=== PATIENT | female | born 1975 | race Caucasian/White ===

== ENCOUNTER 2020-04-05 16:00 | Outpatient (REF) | payer OTHER, SELFPAY | END 2020-04-05 16:01 | disposition home or self-care (01) | LOC: HO.LNP 16:00 | PROVIDERS: Visit Provider Internal Medicine | DX: Z20.828 Contact with and (suspected) exposure to other viral communicable diseases (principal) | CPT/HCPCS: U0003 ==

== ENCOUNTER 2020-05-09 16:20 | Outpatient (REF) | payer OTHER, SELFPAY ==
[2020-05-09 17:11] LABS: Influenza A PCR NEGATIVE (Negative); Influenza B PCR NEGATIVE (Negative); Resp Syncy Virus RNA Qual PCR NEGATIVE (Negative); SARS COV2 PCR INHOUSE POSITIVE (Negative)
== END 2020-05-09 16:21 | disposition home or self-care (01) ==
LOC: HO.LNP 16:20
PROVIDERS: Visit Provider Internal Medicine
DX: Z20.822 Contact with and (suspected) exposure to COVID-19 (principal)
CPT/HCPCS: 0241U

== ENCOUNTER 2020-05-16 12:09 | Emergency (ER) | payer OTHER, SELFPAY ==
[2020-05-16 12:24] VITALS: BP 137/82; PULSE 100; RESP 22; TEMP 36.3; O2SAT 100; BMI 28.6
--- NOTE | 2020-05-16 12:56 | XR_ITS ---
EXAMINATION: XR CHEST CLINICAL INFORMATION: Shortness of breath. COMPARISON: Chest radiograph dated 05/02/2015. TECHNIQUE: Frontal view of the chest was obtained. FINDINGS: No airspace consolidation. No pleural effusion or pneumothorax. Stable cardiomediastinal silhouette. Surgical anchors within the right glenoid. XR/XR chest 1V IMPRESSION: Unremarkable examination.
--- NOTE | 2020-05-16 12:57 | ECG_ITS ---
Test Reason : [id number] Blood Pressure : / mmHG Vent. Rate : 097 BPM Atrial Rate : 097 BPM P-R Int : 140 ms QRS Dur : 076 ms QT Int : 358 ms P-R-T Axes : 046 047 -10 degrees QTc Int : 454 ms Normal sinus rhythm Nonspecific T wave abnormality Abnormal ECG When compared with ECG of 30-APR-2014 11:54, T wave inversion now evident in Inferior leads Nonspecific T wave abnormality now evident in Lateral leads Referred By: Kaitlynn Patel Electronically Signed By:LARS GHOTRA MD
--- NOTE | 2020-05-16 12:58 | ED.SOB ---
HPI - SOB/Dyspnea General Chief Complaint: Dyspnea Stated Complaint: difficulty breathing Time Seen by Provider: 05/16/20 12:56 Source: patient Mode of arrival: ambulatory Limitations: no limitations History of Present Illness HPI Narrative: 44 y/o female with history of remote stage IV Hodgekin's lymphoma, obesity, migraines who was recently diagnosed COVID-19 infection presenting with worsening SOB that started today. She has difficulty breathing with minor exertion. She reports chest tightness and trouble catching her breath. Pain is worse when taking deep breaths or coughing. She reports myalgias and headaches as well. She began with symptoms 8 days ago and was found to be COVID positive 6 days ago. MD elicited complaint: shortness of breath Onset (ago): hour(s) (6) Context: recent illness Timing: constant and progressively worsening Severity: moderate Exacerbating factors: exertion, coughing and inspiration Relieving factors: rest and upright position Associated symptoms: chest pain, pain with inspiration and cough Treatment prior to arrival: none Related Data Allergies Allergy/AdvReac Type Severity Reaction Status Date / Time codeine [CODEINE] Allergy Unknown VOMIT Unverified 01/20/20 15:56 AND/OR SLEEP Codeine Phosphate Allergy Unknown Uncoded 08/07/16 00:00 Codeine Sulfate Allergy Unknown nausea and Uncoded 01/26/19 00:00 vomiting Review of Systems Review of Systems: Constitutional: No Fever, + Chills ENT/Mouth: + sore throat, No Rhinorrhea, No Swallowing Difficulty Eyes: No Eye Pain, No Swelling, No Redness Cardiovascular: + Chest Pain, + SOB, No Orthopnea, No Edema Respiratory:+o Cough, No Sputum, No Wheezing, + dyspnea Gastrointestinal: No Nausea, No Vomiting, No Diarrhea, No abdominal Pain Genitourinary: No Dysuria, No Urinary Frequency, No Hematuria Musculoskeletal: No joint pain, + Myalgias Skin: No Skin Lesions, No rash Neuro: No Weakness, No Numbness, No Dizziness, + Headache Psych: No Anxiety/Panic, No Depression Heme/Lymph: No Bruising, No Lymphadenopathy Endocrine: No Polyuria, No Polydipsia PMFSH Social History Social History Advance Directives: No Advance Directives Information Provided: No Physical Exam Vital Signs: Vital Signs: Last Vital Signs Temp 97.3 F 05/16/20 14:00 Pulse 92 05/16/20 14:00 Resp 18 05/16/20 14:00 BP 142/88 H 05/16/20 14:00 Pulse Ox 100 05/16/20 14:00 Body Mass Index 28.6 Appearance: Alert. Oriented X3. No acute distress. Eyes: Pupils equal, round and reactive to light. ENT: Pharynx normal. Neck: Normal inspection. Neck supple. CVS: Normal heart rate and rhythm. Pulses normal. Respiratory: No respiratory distress. Breath sounds diminished throughout. Dyspneic when speaking. Abdomen: Soft and nontender. +BS x4 Skin: Skin warm and dry. Normal skin color. Normal skin turgor. No rashes. Extremities: No lower extremity edema. Negative Layla's sign. Neuro: Oriented X 3. Non-focal Course Course Course Narrative: 44 yo female with history of Hodgkin's lymphoma and COVID here with SOB and dyspnea - No hypoxia but dyspneic and tachycardic on evaluation. Concern for PE. Labs pending. If ddimer is elevated plan of CTA for further evaluation. Will need ambulatory pulse oximetry. Lab delay due to difficult stick. multiple attempts made with success at 430pm. Signed out to Vernon Suarez PA-C MDM - SOB/Dyspnea Medical Records Attestation: I reviewed the patient's medical records. Lab Data Attestation: I reviewed the patient's lab results. Result diagrams: 05/16/20 16:33 05/16/20 16:33 Labs: Lab Results 05/16/20 Range/Units 16:33 Hold Blue Top SEE NOTE ECG Data Attestation: I personally reviewed and interpreted this ECG as follows: ECG interpretation date: 05/16/20 ECG interpretation time: 14:06 Interpretation: normal sinus rhythm, HR 97 bpm, isolated t-wave inversion in lead III, normal MA interval Discharge Plan Discharge Clinical Impression: COVID-19
[2020-05-16 14:00] VITALS: BP 142/88; PULSE 92; RESP 18; TEMP 36.3; O2SAT 100
[2020-05-16 16:42] LABS: MANUAL DIFF FLAG NO
[2020-05-16 16:44] LABS: Basophils Percent Auto 0.2 % (0-2); Eosinophils Percent Auto 0.7 % (0-4); Hematocrit 41.7 % (37-47); Hemoglobin 13.7 g/dl (12.0-16.0); Imm Gran Abs Auto 0.03 X10*3/uL (0.00-0.03); Imm Gran Pct Auto 0.5 % (0.0-0.4); Lymphocytes Absolute Auto 0.7 X10*3/uL (1.2-4.9); Lymphocytes Percent Auto 12.4 % (20-40); Mean Corpuscular HGB Conc 32.9 g/dl (31.0-35.0); Mean Corpuscular Volume 91.2 fL (80-98); Mean Platelet Volume 10.1 fL (9.4-12.3); Monocytes Absolute Auto 0.3 X10*3/uL (0.1-1.2); Monocytes Percent Auto 5.6 % (2-11); Neutrophils Absolute Auto 4.8 X10*3/uL (2.0-8.3); Neutrophils Percent Auto 80.6 % (45-73); Platelet Count 171 X10*3/uL (160-400); Red Blood Count 4.57 X10*6/uL (4.20-5.50); Red Cell Distribution Width 13.4 % (11.0-16.0); White Blood Count 5.9 X10*3/uL (4.8-10.8)
[2020-05-16 17:04] LABS: D Dimer < 200 NG/ML
[2020-05-16 17:29] LABS: Anion Gap 15 (12-20); Blood Urea Nitrogen 12 mg/dL (9-16); C Reactive Protein 1.89 mg/dL (< or = 0.50); Calcium 9.2 mg/dL (8.4-10.2); Carbon Dioxide 27 mmol/L (22-29); Chloride 105 mmol/L (96-108); Creatinine Clr Calc Pharmacy 110.4; Estimated Glomerular Filt Rate > 60; Glucose Random 93 mg/dL (60-115); Magnesium 2.2 mg/dL (1.6-2.6); Potassium 4.2 mmol/l (3.3-5.1); Sodium 143 mmol/L (135-145)
[2020-05-16 17:41] LABS: Lactic Acid 2.3 mmol/L (0.5-2.0)
[2020-05-16 18:03] LABS: Procalcitonin 0.02 ng/mL
[2020-05-16 18:39] LABS: Reflex Lactate? Lactic Acid Added
== END 2020-05-16 19:33 | disposition home or self-care (01) ==
PROVIDERS: Physician Assistant; Emergency Provider Emergency Medicine Emergency Medical Services
DX: U07.1 COVID-19 (principal); R06.00 Dyspnea, unspecified
CPT/HCPCS: 36415; 71045; 80048; 83605; 83735; 84145; 85025; 85379; 86140; 87040; 93005; 99283

== ENCOUNTER 2020-06-13 06:49 | Outpatient (REF) | payer OTHER, SELFPAY ==
[2020-06-13 11:15] LABS: MANUAL DIFF FLAG NO
[2020-06-13 11:27] LABS: Basophils Percent Auto 0.4 % (0-2); Eosinophils Absolute Auto 0.2 X10*3/uL (0.0-0.4); Eosinophils Percent Auto 3.2 % (0-4); Hematocrit 37.8 % (37-47); Hemoglobin 11.9 g/dl (12.0-16.0); Imm Gran Abs Auto 0.02 X10*3/uL (0.00-0.03); Imm Gran Pct Auto 0.4 % (0.0-0.4); Lymphocytes Percent Auto 20.6 % (20-40); Mean Corpuscular HGB Conc 31.5 g/dl (31.0-35.0); Mean Corpuscular Hemoglobin 29.6 pg (27.0-33.0); Mean Platelet Volume 10.6 fL (9.4-12.3); Monocytes Absolute Auto 0.3 X10*3/uL (0.1-1.2); Monocytes Percent Auto 6.5 % (2-11); Neutrophils Absolute Auto 3.4 X10*3/uL (2.0-8.3); Neutrophils Percent Auto 68.9 % (45-73); Platelet Count 196 X10*3/uL (160-400); Red Blood Count 4.02 X10*6/uL (4.20-5.50); Red Cell Distribution Width 14.8 % (11.0-16.0); White Blood Count 4.9 X10*3/uL (4.8-10.8)
[2020-06-13 11:55] LABS: Alanine Aminotransferase 11 U/L (0-31); Albumin Level 4.1 g/dL (3.5-5.0); Alkaline Phosphatase 85 U/L (39-117); Anion Gap 14 (12-20); Aspartate Amino Transferase 17 U/L (5-31); Bilirubin Total 0.3 mg/dL (0.0-1.0); Blood Urea Nitrogen 12 mg/dL (9-16); Calcium 8.7 mg/dL (8.4-10.2); Carbon Dioxide 25 mmol/L (22-29); Chloride 107 mmol/L (96-108); Cholesterol 192 mg/dL; Estimated Glomerular Filt Rate > 60; Glucose Fasting 86 mg/dL (60-99); HDL Cholesterol 47 mg/dL; LDL Cholesterol Calculated 130 mg/dl; Potassium 4.2 mmol/L (3.3-5.1); Sodium 142 mmol/L (135-145); Total Protein 6.9 g/dL (6.5-8.0); Triglycerides 79 mg/dL
[2020-06-13 12:18] LABS: Free T4 (Free Thyroxine) 0.83 ng/dL (0.71-1.85); Thyroid Stimulating Hormone 2.88 uIU/mL (0.32-4.0); Vitamin D 25-OH Total 47.6 ng/mL (>30)
== END 2020-06-13 06:50 | disposition home or self-care (01) ==
LOC: HO.HMGCLDS 06:49
PROVIDERS: PCP Internal Medicine; Visit Provider Internal Medicine
DX: E78.00 Pure hypercholesterolemia, unspecified (principal); E55.9 Vitamin D deficiency, unspecified; K21.9 Gastro-esophageal reflux disease without esophagitis; Z86.39 Personal history of other endocrine, nutritional and metabolic disease
CPT/HCPCS: 36415; 80053; 80061; 82306; 84439; 84443; 85025

== ENCOUNTER 2020-10-25 12:45 | Outpatient (REF) | payer OTHER, SELFPAY | END 2020-10-25 12:46 | disposition home or self-care (01) | LOC: HO.LAB 12:45 | PROVIDERS: PCP Internal Medicine; Visit Provider Advanced Practice Midwife | DX: N84.1 Polyp of cervix uteri (principal) | CPT/HCPCS: 58558; 88305 ==

== ENCOUNTER → 2020-11-21 11:45 | Outpatient (BNVA) | payer OTHER, SELFPAY | PROVIDERS: PCP Internal Medicine; Visit Provider Advanced Practice Midwife ==

== ENCOUNTER → 2020-11-28 13:04 | Outpatient (BNVA) | payer OTHER, SELFPAY | PROVIDERS: PCP Internal Medicine; Referring Provider Internal Medicine; Visit Provider Surgery ==

== ENCOUNTER 2020-12-19 07:34 | Outpatient (REF) | payer OTHER, SELFPAY ==
[2020-12-19 07:46] VITALS: BMI 28.8
[2020-12-19 07:47] VITALS: BP 120/75; PULSE 104; RESP 16; TEMP 36.5; O2SAT 99
--- NOTE | 2020-12-19 08:30 | P.OP_ITS ---
Operative Note Operative Note Date of Service: 12/19/20 Narrative: Preoperative diagnosis: Pilar cyst left posterior scalp Postoperative diagnosis: Same Procedure: Excision of Pilar cyst left posterior scalp Surgeon: Francisco Lord MD Commodity Supervisor: No physician Anesthesia: Local Indications for procedure: 45-year-old female with a palpable lump in the posterior scalp mobile within the subcutaneous tissue consistent with a Pilar cyst measuring approximately 1.5 cm in diameter Operative findings: Pilar cyst 1.5 cm in diameter Specimen: Pilar cyst posterior left scalp Estimated blood loss: 2 mL Complications: None Procedure details: Patient was brought to the minor surgery suite placed in a right lateral decubitus position. The site of surgery was confirmed by the patient in the left posterior scalp. After assuring informed consent the scalp was prepped with Betadine and draped in a sterile fashion. Local anesthesia consisting of 1% lidocaine with epinephrine was then infiltrated over the cyst. A 1.5 cm incision was then made over the cyst and carried down through subcutaneous tissue up to the cyst wall. Blunt dissection was then used to dissect the cyst from the surrounding subcutaneous tissue. The specimen was passed off the table and sent to pathology for further examination. Skin was then closed using interrupted 3-0 Prolene sutures. Bacitracin was applied to the incision. The patient tolerated the procedure well. She was discharged to home in stable condition.
--- NOTE | 2020-12-22 16:40 | W.PM.OPN ---
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 The site of surgery was confirmed by the patient in the posterior scalp. After assuring informed consent the skin was prepped with Betadine and draped in a sterile fashion. Local anesthesia consisting of 1% lidocaine with epinephrine was then infiltrated over the cyst. Incision was then made over the cyst and sharp dissection used to dissect the cyst wall from the surrounding subcutaneous tissue. The wall was excised and sent to pathology for further examination. Wounds were irrigated and suctioned dry. Skin was then closed using interrupted 3-0 Prolene sutures. Bacitracin was applied. The patient tolerated the procedure well was discharged to home in stable condition.
== END 2020-12-19 07:35 | disposition home or self-care (01) ==
LOC: HO.MS 07:34
PROVIDERS: PCP Internal Medicine; Visit Provider Surgery
PROC: (CPT 11422; principal; 2020-12-19 08:00)
DX: L72.11 Pilar cyst (principal)
CPT/HCPCS: 11422; 88304

== ENCOUNTER → 2020-12-29 08:46 | Outpatient (BNVA) | payer OTHER, SELFPAY | PROVIDERS: PCP Internal Medicine; Referring Provider Internal Medicine; Visit Provider Surgery ==

== ENCOUNTER 2021-01-09 14:48 | Outpatient (REF) | payer OTHER, SELFPAY ==
--- NOTE | ~2021-01-09 | MM_ITS ---
EXAMINATION: MM DIAGNOSTIC DIGITAL BREAST TOMOSYNTHESIS, BILATERAL CLINICAL INFORMATION: Due for yearly. Also, follow-up probable benign asymmetric density anterior medial left breast initially noted at baseline exam in 2019. Prior history thoracic radiation for Hodgkin's decades ago. TC score 13%. COMPARISON: Mammography: 01/03/2020, 06/22/2019, 12/15/2018, 12/03/2018 (baseline, BI-RADS 0), targeted left breast ultrasound 12/15/2018. TECHNIQUE: Digital breast tomosynthesis is performed in both the craniocaudal and mediolateral oblique views along with computer-aided detection (CAD). Synthesized 2D images are generated from the tomosynthesis. FINDINGS: There are scattered areas of fibroglandular density (ACR BI-RADS breast composition Category b). Parenchymal pattern is similar to prior exams. There is no developing density. There is no interval mass or architectural abnormality or abnormal calcifications. The axilla and skin contours are unremarkable. The asymmetric density anterior medial left breast on CC view is stable from prior studies, dating back to initial baseline 12/03/2018, and now considered to be benign. Results are discussed with the patient at time of visit. MM/MM tomosynthesis diagnostic BI IMPRESSION: 1. No mammographic evidence of malignancy. 2. No significant changes from prior exams. Asymmetric density anterior medial left breast initially noted at baseline exam is now considered to be benign. ASSESSMENT: BI-RADS 2: Benign RECOMMENDATION: Routine annual mammography screening. This patient's information was entered into a reminder system with a target due date for their next mammogram.
== END 2021-01-09 14:49 | disposition home or self-care (01) ==
LOC: HO.MAMMO 14:48
PROVIDERS: PCP Internal Medicine; Visit Provider Internal Medicine
DX: R92.2 Inconclusive mammogram (principal)
CPT/HCPCS: 77062; 77066

== ENCOUNTER 2021-12-26 14:18 | Outpatient (REF) | payer OTHER, SELFPAY ==
[2021-12-26 17:08] LABS: Influenza A PCR NEGATIVE (Negative); Influenza B PCR NEGATIVE (Negative); Resp Syncy Virus RNA Qual PCR NEGATIVE (Negative); SARS COV2 PCR INHOUSE NEGATIVE (Negative)
== END 2021-12-26 14:19 | disposition home or self-care (01) ==
LOC: HO.LNP 14:18
PROVIDERS: Visit Provider Internal Medicine
DX: R11.2 Nausea with vomiting, unspecified (principal); R19.7 Diarrhea, unspecified; Z20.822 Contact with and (suspected) exposure to COVID-19
CPT/HCPCS: 0241U

== ENCOUNTER 2022-02-22 10:36 | Outpatient (REF) | payer OTHER, SELFPAY ==
[2022-02-22 13:37] LABS: MANUAL DIFF FLAG NO
[2022-02-22 13:40] LABS: Basophils Percent Auto 0.5 % (0-2); Eosinophils Absolute Auto 0.1 X10*3/uL (0.0-0.4); Eosinophils Percent Auto 2.3 % (0-4); Hemoglobin 12.6 g/dl (12.0-16.0); Imm Gran Abs Auto 0.01 X10*3/uL (0.00-0.03); Imm Gran Pct Auto 0.2 % (0.0-0.4); Lymphocytes Absolute Auto 1.7 X10*3/uL (1.2-4.9); Mean Corpuscular HGB Conc 32.3 g/dl (31.0-35.0); Mean Corpuscular Hemoglobin 29.1 pg (27.0-33.0); Mean Corpuscular Volume 90.1 fL (80.0-98.0); Mean Platelet Volume 10.4 fL (9.4-12.3); Monocytes Absolute Auto 0.4 X10*3/uL (0.1-1.2); Monocytes Percent Auto 7.6 % (2-11); Neutrophils Absolute Auto 3.3 x10*3/uL (2.0-8.3); Neutrophils Percent Auto 59.4 % (45-73); Platelet Count 233 X10*3/uL (160-400); Red Blood Count 4.33 X10*6/uL (4.20-5.50); Red Cell Distribution Width 14.2 % (11.0-16.0); White Blood Count 5.6 X10*3/uL (4.8-10.8)
[2022-02-22 13:53] LABS: Alanine Aminotransferase 13 U/L (0-31); Albumin Level 4.5 g/dL (3.5-5.0); Alkaline Phosphatase 90 U/L (39-117); Amylase 53 U/L (28-100); Anion Gap 17 (12-20); Aspartate Amino Transferase 20 U/L (5-31); Bilirubin Total 0.5 mg/dL (0.0-1.0); Blood Urea Nitrogen 12 mg/dL (9-16); C Reactive Protein 0.45 mg/dL (< or = 0.50); Calcium 9.8 mg/dL (8.4-10.2); Carbon Dioxide 26 mmol/L (22-29); Chloride 103 mmol/L (96-108); Estimated Glomerular Filt Rate > 60; Glucose Random 77 mg/dL (60-115); Potassium 4.6 mmol/L (3.3-5.1); Sodium 141 mmol/L (135-145); Total Protein 7.3 g/dL (6.5-8.0)
== END 2022-02-22 10:37 | disposition home or self-care (01) ==
LOC: HO.10HDL 10:36
PROVIDERS: Visit Provider Internal Medicine
DX: K21.9 Gastro-esophageal reflux disease without esophagitis (principal); R59.9 Enlarged lymph nodes, unspecified
CPT/HCPCS: 36415; 80053; 82150; 85025; 86140

== ENCOUNTER 2023-08-23 07:26 | Outpatient (REF) | payer OTHER, SELFPAY ==
[2023-08-23 11:57] LABS: MANUAL DIFF FLAG NO
[2023-08-23 11:59] LABS: Basophils Percent Auto 0.5 % (0-2); Eosinophils Absolute Auto 0.6 X10*3/uL (0.0-0.4); Eosinophils Percent Auto 10.8 % (0-4); Hemoglobin 13.1 g/dl (12.0-16.0); Imm Gran Abs Auto 0.02 X10*3/uL (0.00-0.03); Imm Gran Pct Auto 0.3 % (0.0-0.4); Lymphocytes Absolute Auto 1.4 X10*3/uL (1.2-4.9); Lymphocytes Percent Auto 24.9 % (20-40); Mean Corpuscular HGB Conc 32.8 g/dl (31.0-35.0); Mean Corpuscular Hemoglobin 30.6 pg (27.0-33.0); Mean Corpuscular Volume 93.5 fL (80.0-98.0); Mean Platelet Volume 10.5 fL (9.4-12.3); Monocytes Absolute Auto 0.4 X10*3/uL (0.1-1.2); Monocytes Percent Auto 6.4 % (2-11); Neutrophils Absolute Auto 3.3 x10*3/uL (2.0-8.3); Neutrophils Percent Auto 57.1 % (45-73); Platelet Count 211 X10*3/uL (160-400); Red Blood Count 4.28 X10*6/uL (4.20-5.50); Red Cell Distribution Width 14.5 % (11.0-16.0); White Blood Count 5.8 X10*3/uL (4.8-10.8)
[2023-08-23 12:16] LABS: Alanine Aminotransferase 22 U/L (0-31); Albumin Level 4.2 g/dL (3.5-5.0); Alkaline Phosphatase 70 U/L (39-117); Anion Gap 10 (12-20); Aspartate Amino Transferase 24 U/L (5-31); Bilirubin Total 0.4 mg/dL (0.0-1.0); Blood Urea Nitrogen 17 mg/dL (9-16); Calcium 9.2 mg/dL (8.4-10.2); Carbon Dioxide 27 mmol/L (22-29); Chloride 109 mmol/L (96-108); Cholesterol 195 mg/dL (<200); Estimated Glomerular Filt Rate > 60; Glucose Fasting 84 mg/dL (60-99); HDL Cholesterol 44 mg/dL (>40); LDL Cholesterol Calculated 141 mg/dL (<100); Potassium 4.3 mmol/L (3.3-5.1); Sodium 142 mmol/L (135-145); Total Protein 7.2 g/dL (6.5-8.0); Triglycerides 54 mg/dL (<150)
== END 2023-08-23 07:27 | disposition home or self-care (01) ==
LOC: HO.HMGCLDS 07:26
PROVIDERS: PCP Internal Medicine; Visit Provider Internal Medicine
DX: K21.9 Gastro-esophageal reflux disease without esophagitis (principal); E78.00 Pure hypercholesterolemia, unspecified
CPT/HCPCS: 36415; 80053; 80061; 85025

== ENCOUNTER 2023-10-13 16:33 | Outpatient (REF) | payer OTHER, SELFPAY ==
--- NOTE | ~2023-10-13 | XR_ITS ---
EXAMINATION: XR HAND, BILATERAL CLINICAL INFORMATION: Evaluate osteoarthritis. COMPARISON: None available. TECHNIQUE: 3 views of each hand. FINDINGS: Right Hand: Bone mineralization is normal. Moderate degenerative changes in the first carpometacarpal joint with joint space narrowing and hypertrophic change. Degenerative changes in multiple IP joints with joint space narrowing and hypertrophic change most notable in the DIP joints as well as in the fifth IP joint. Small ossicle along the dorsal aspect of the wrist on the lateral view. Left Hand: Bone mineralization is normal. Moderate degenerative changes in the first carpometacarpal joint with joint space narrowing and hypertrophic change. Degenerative changes at multiple IP joints with joint space and hypertrophic change which appears severe in the second digit DIP joint. XR/XR hand RT min 3V IMPRESSION: 1. Moderate degenerative changes in the bilateral first carpometacarpal joints. 2. Degenerative changes in multiple IP joints bilaterally.
--- NOTE | ~2023-10-13 | XR_ITS ---
EXAMINATION: XR HAND, BILATERAL CLINICAL INFORMATION: Evaluate osteoarthritis. COMPARISON: None available. TECHNIQUE: 3 views of each hand. FINDINGS: Right Hand: Bone mineralization is normal. Moderate degenerative changes in the first carpometacarpal joint with joint space narrowing and hypertrophic change. Degenerative changes in multiple IP joints with joint space narrowing and hypertrophic change most notable in the DIP joints as well as in the fifth IP joint. Small ossicle along the dorsal aspect of the wrist on the lateral view. Left Hand: Bone mineralization is normal. Moderate degenerative changes in the first carpometacarpal joint with joint space narrowing and hypertrophic change. Degenerative changes at multiple IP joints with joint space and hypertrophic change which appears severe in the second digit DIP joint. XR/XR hand LT min 3V IMPRESSION: 1. Moderate degenerative changes in the bilateral first carpometacarpal joints. 2. Degenerative changes in multiple IP joints bilaterally.
== END 2023-10-13 16:34 | disposition home or self-care (01) ==
LOC: HO.XRAY 16:33
PROVIDERS: PCP Internal Medicine; Visit Provider Internal Medicine
DX: M19.041 Primary osteoarthritis, right hand (principal); M19.042 Primary osteoarthritis, left hand
CPT/HCPCS: 73130

== ENCOUNTER 2023-10-21 08:23 | Outpatient (REF) | payer OTHER, SELFPAY ==
--- NOTE | 2023-10-21 08:32 | EMG_ITS ---
Right median and ulnar motor and sensory studies were performed. Right radial sensory and median and lateral antecubital brachial sensory studies were performed. Needle examination was performed. IMPRESSION: Mild right ulnar neuropathy across cubital tunnel. MD SCARLETT Hernandez/HERNAN / [id number]
== END 2023-10-21 08:24 | disposition home or self-care (01) ==
LOC: HO.NEURO 08:23
PROVIDERS: PCP Internal Medicine; Visit Provider Internal Medicine
DX: R20.2 Paresthesia of skin (principal)
CPT/HCPCS: 95886; 95910

== ENCOUNTER 2023-11-19 08:00 | Outpatient (AMB) | payer BC, SELFPAY ==
--- NOTE | 2023-11-19 08:15 | MHC.OFFVIS ---
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 EMG done on 10/21/23. Patient reports off and on for a couple of years. She states that she also has arthritis in both of her hands. 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 ? ? While in the office today, the patient reports the numbness has been intermittent for a couple of years. ? ? Patient confirms a medical history of bilateral hand arthritis. ? PFSH Medical History Depression Hodgkin lymphoma Hx of migraine headaches Surgical History H/O elbow surgery H/O shoulder surgery History of biopsy History of hernia surgery Family History Family/Other Breast cancer Mother Melanoma Father Lung cancer Paternal Uncle Lung cancer Paternal Aunt Lung cancer Social History (Updated 11/19/23 @ 08:16 by Lance Riley) Alcohol intake: former Patient Tobacco Use Status: Never used Tobacco Current occupational status: employed Current occupation: [employer]/ left hand dominant Review of Systems Const All systems reviewed & are unremarkable except as noted in HPI and below Physical Exam Vital Signs: BMI result Body Mass Index 25.5 Const General: cooperative and no acute distress Orientation/consciousness: patient oriented x3 Resp Effort & Inspection: normal respiratory effort and able to speak in complete sentences Cardio Peripheral pulses: Peripheral pulses 2+ throughout Skin General skin exam: no rashes or lesions noted Neuro General: patient oriented x3 Extrem Other: Bilateral hands: Index ingers DIP joints have mild edema and obvious deformity. Able to perform full finger flexion, extension, abduction, adduction, finger cross, okay sign, and thumbs up without deficit. Able to make a closed fist. Reports that she has intermittent numbness and tingling in the index and middle figers on the right. Capillary refill is brisk. Radial pulse intact.? ? Assessment & Plan Assessment & Plan (1) Rheumatoid arthritis of right hand: Code(s): M06.9 - Rheumatoid arthritis, unspecified Category: Medical (2) Rheumatoid arthritis involving left hand: Code(s): M06.9 - Rheumatoid arthritis, unspecified Category: Medical (3) Cubital tunnel syndrome on right: Code(s): G56.21 - Lesion of ulnar nerve, right upper limb Category: Medical Plan Ms. Tate is a 48-year-old left hand dominant female who presents in the office today, as a new patient, for an evaluation of right-hand numbness. ? ? While in the office today, the patient reports the numbness has been intermittent for a couple of years. ? ? Patient confirms a medical history of bilateral hand arthritis.? ? I discussed with the patient that her cubital tunnel symptoms are very mild and very intermittent, therefore, the patient would not like to pursue surgical intervention, at this time. However, should her symptoms become worse or more frequent she will contact the office. A referral was placed for the patient to be further evaluated by Rheumatology. Follow-up will be PRN, or sooner if needed. ? ? EMG study of the right upper extremity, obtained on 10/21/2023, revealed: Mild right ulnar neuropathy across cubital tunnel.? ? X-rays of the bilateral hands, obtained on 10/27/2023, revealed:? 1. Moderate degenerative changes in the bilateral first carpometacarpal joints.? 2. Degenerative changes in multiple IP joints bilaterally.? Patient Instructions: Scribed by Kaitlynn Álvarez medical customer service representative, for Ursula Aguilar PA-C on 11/19/2023 at 8:10 am, EST.? Coding Level of Care Code New Pt Level 3 (52760) Diagnoses Rheumatoid arthritis of right hand M06.9 Rheumatoid arthritis involving left hand M06.9 Cubital tunnel syndrome on right G56.21
[2023-11-19 08:16] VITALS: BMI 25.5
== END 2023-11-19 08:46 | disposition home or self-care (01) ==
PROVIDERS: PCP Internal Medicine; Visit Provider Physician Assistant
DX: G56.21 Lesion of ulnar nerve, right upper limb (principal); M06.9 Rheumatoid arthritis, unspecified
CPT/HCPCS: 99203

== ENCOUNTER → 2023-11-19 08:00 | Outpatient (BNVA) | payer OTHER, SELFPAY | PROVIDERS: PCP Internal Medicine; Visit Provider Physician Assistant ==

== ENCOUNTER 2023-12-03 08:26 | Outpatient (AMB) | payer BC, SELFPAY ==
[2023-12-03 08:34] VITALS: BP 126/70; PULSE 75; O2SAT 97; BMI 26.9
--- NOTE | 2023-12-03 08:34 | MHC.OFFVIS ---
Vital Signs 12/03/23 08:34 Height 5 ft 7 in Weight 171 lb 15.369 oz BMI 26.9 BP 126/70 Blood Pressure Location Lt brachial Position Sitting Pulse 75 Pulse Source Pulse Oximeter Pulse Oximetry (%) 97 Oxygen Delivery Method Room Air Intake Visit Reasons: RA/CM Intake Note: Patient is here as a new patient, she is here referred by orthopedics with question of RA. Allergies codeine [CODEINE] Allergy (Unknown, Verified 12/03/23 08:36) VOMIT AND/OR SLEEP Medication List - Last Reconciled 12/03/23 by Suad Flannery MD fluoxetine 40 mg PO DAILY HPI Comments Details: This is a 48-year-old female who was referred by Orthopedics for evaluation of rheumatoid arthritis. Patient states that he has been having aching of both hands especially at the DIPs for a few months now. She also states that significant pain when she bumps her fingers into anything. Bilateral hand morning stiffness lasting 5 minutes. 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 She takes ibuprofen 1 mg a day every 1-2 weeks as needed for joint pain. She states that her maternal aunt has rheumatoid arthritis and lupus. She denies any unintentional weight loss. Denies any fevers. Denies any history of DVT/PE. 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 Female Reproductive History Menstrual Age of Menarche: 14 Duration of menses: 3-5 days Date of last menstrual period: 11/30/23 Total pregnancies: 0 Review of Systems Const Denies fever(s) Eyes Reports no additional complaints Musc Reports deformity, Reports arthralgias and Reports stiffness Physical Exam Vital Signs: Last Vital Signs Pulse 75 12/03/23 08:34 BP 126/70 12/03/23 08:34 Pulse Ox 97 12/03/23 08:34 Oxygen Delivery Method Room Air 12/03/23 08:34 BMI result Body Mass Index 26.9 Const General: cooperative, healthy appearing and comfortable Nutritional Appearance: overweight Orientation/consciousness: patient oriented x3 Limitations: no limitations HEENT Head: Yes normocephalic and Yes atraumatic Mouth: moist mucous membranes Resp Effort & Inspection: normal respiratory effort and able to speak in complete sentences Cardio Rate: regular rate Skin General skin exam: no rashes or lesions noted Neuro General: patient oriented x3 Extrem Other: Osteoarthritic changes of both hands with prominent Heberden's nodes, most prominent is the index fingers bilaterally These Heberden's nodes are slightly tender There is no active synovitis Normal nailfold capillaroscopy No elbow pain with flexion-extension bilaterally Normal range of motion of shoulders bilaterally no knee pain with flexion-extension bilaterally Results Reviewed Results Reviewed: I reviewed her bilateral hand x-rays which show osteoarthritic changes most prominent in the DIP joints. Nothing suggestive of inflammatory arthritis Assessment & Plan Assessment & Plan (1) Osteoarthritis of hands, bilateral: Code(s): M19.041 - Primary osteoarthritis, right hand; M19.042 - Primary osteoarthritis, left hand Category: Medical Qualifiers: Osteoarthritis type: primary Qualified Code(s): M19.041 - Primary osteoarthritis, right hand; M19.042 - Primary osteoarthritis, left hand Plan: This is a 48-year-old female presents for evaluation of bilateral hand pain. On exam she has bilateral hand osteoarthritis. Nothing suggestive of inflammatory arthritis. Discussed nature of osteoarthritis and management of hand OA. Will refer patient to occupational therapy. Patient can take Tylenol up to 2500 mg daily Can use Voltaren gel as needed Use ibuprofen sparingly Consider getting a paraffin wax machine Discussed with patient that injections or surgical intervention can be considered in advanced cases Follow-up as needed Plan I spent 30 minutes reviewing patient's chart, evaluating patient, counseling patient and documenting in the chart Orders: Orders OT Evaluation and Treatment Today M19.041 - Primary osteoarthritis, right hand, M19.042 - Primary osteoarthritis, left hand Coding Level of Care Code New Pt Level 3 (31208) Diagnoses Primary osteoarthritis of both hands M19.041; M19.042 Osteoarthritis type: primary
== END 2023-12-03 09:02 | disposition home or self-care (01) ==
PROVIDERS: PCP Internal Medicine; Visit Provider Student in an Organized Health Care Education/Training Program
DX: M19.041 Primary osteoarthritis, right hand (principal); M19.042 Primary osteoarthritis, left hand
CPT/HCPCS: 99203

== ENCOUNTER → 2023-12-03 08:26 | Outpatient (BNVA) | payer BC, SELFPAY | PROVIDERS: PCP Internal Medicine; Visit Provider Student in an Organized Health Care Education/Training Program ==

== ENCOUNTER 2024-09-24 14:42 | Outpatient (AMB) | payer BC, SELFPAY ==
[2024-09-24 15:01] VITALS: BP 128/80; PULSE 88; TEMP 36.8; O2SAT 98; BMI 30.7
--- NOTE | 2024-09-24 15:01 | MHC.PC.OV ---
Vital Signs 09/24/24 15:01 Height 5 ft 7 in Weight 196 lb BMI 30.7 BP 128/80 Blood Pressure Location Lt brachial Position Sitting Pulse 88 Pulse Source Pulse Oximeter Temp 98.3 F Temp Source Axillary Pulse Oximetry (%) 98 Oxygen Delivery Method Room Air Intake Visit Reasons: Routine Accompanied by: Self / Same As Patient Allergies codeine [CODEINE] Allergy (Unknown, Verified 09/24/24 15:04) VOMIT AND/OR SLEEP Tobacco use date assessed: 09/24/24 Dental Screening Dental Screen Date: 09/24/24 Did you have a dental visit in the last 12 months?: No Did you have a dental problem in the last 6 months where you did not have access to dental care?: No HPI HPI Comments History of Present Illness Details This is a 48-year-old female with a past medical history of OA, GERD, Hodgkin lymphoma, depression/anxiety presenting to establish care Depression/Anxiety: On fluoxetine 40mg daily ROS CONSTITUTIONAL: Denies weight loss, fever and chills. HEENT: Denies changes in vision and hearing. RESPIRATORY: Denies SOB and cough. CV: Denies palpitations and CP GI: Denies abdominal pain, nausea, vomiting and diarrhea. : Denies dysuria and urinary frequency. MSK: Denies new myalgia and joint pain. SKIN: Denies rash and pruritus. NEUROLOGICAL: Denies headache PSYCHIATRIC: Denies recent changes in mood. PHYSICAL EXAM: GENERAL: Alert and oriented x 3. NAD EYES: EOMI. Anicteric. HENT: Moist mucous membranes. No scleral icterus. No cervical lymphadenopathy. LUNGS: Clear to auscultation bilaterally. CARDIOVASCULAR: Regular rate and rhythm. No murmur. No JVD. ABDOMEN: Soft, non-tender +bs EXTREMITIES: No edema. Non-tender. SKIN: No rashes or lesions. Warm. NEUROLOGIC: No focal neurological deficits. CN II-XII grossly intact PSYCHIATRIC: Cooperative. Appropriate mood and affect [facility] Medical History Joint pain Depression Hodgkin lymphoma Hx of migraine headaches Surgical History History of biopsy H/O elbow surgery History of hernia surgery H/O shoulder surgery Family History Family/Other Breast cancer Mother Melanoma Father Lung cancer Paternal Uncle Lung cancer Paternal Aunt Lung cancer Mother No problems noted. Father No problems noted. 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 1. Little interest or pleasure in doing things: not at all 2. Feeling down, depressed, or hopeless: not at all 3. Trouble falling or staying asleep, or sleeping too much: not at all 4. Feeling tired or having little energy: not at all 5. Poor appetite or overeating: not at all 6. Feeling bad about yourself - or that you are a failure or have let yourself or your family down: not at all 7. Trouble concentrating on things, such as reading the newspaper or watching television: not at all 8. Moving or speaking so slowly that other people could have noticed. Or the opposite - being so fidgety or restless that you have been moving around a lot more than usual: not at all 9. Thoughts that you would be better off or of hurting yourself in some way: not at all Total score: 0 Depression Screening Interpretation: Negative Depression Screening Done: Yes 84610 - PHQ-9 Billing: Yes Source: Developed by Drs. Favian Taylor, Quita Faulkner, Barrie Greenberg and colleagues, with an educational ernestine from [employer]. Thrive Questionnaire Date Thrive assessed: 09/24/24 I am a: Patient Within the past 12 months, did the food you bought not last and you didn't have the money to get more?: Never true Within the past 12 months, did you worry whether your food would run out before you got money to buy more?: Never true Do you have trouble paying for medicines?: No Do you have trouble getting transportation to medical appointments?: No Do you have trouble paying your heating and electricity bill?: No Do you have trouble taking care of your child, family member or friend?: No Do you have trouble with day-to-day activities such as bathing, preparing meals, shopping, managing finances, etc.?: No Are you currently unemployed and looking for a job?: No Are you interested in more education?: No THRIVE Score: 0 AUDIT C Alcohol Use Questionnaire (AUDIT-C) 1. How often do you have a drink containing alcohol?: Never 3. How often do you have six or more drinks on one occasion?: Never Total Score: 0 AZ-7 AMB Questionnaire AZ-7 Date AZ - 7 assessed: 09/24/24 Feeling nervous, anxious, or on edge: 0 = Not at all Not being able to stop or control worryin = Not at all Worrying too much about different things: 0 = Not at all Trouble relaxin = Not at all Being so restless that it is hard to sit still: 0 = Not at all Becoming easily annoyed or irritable: 0 = Not at all Feeling afraid as if something awful might happen: 0 = Not at all Total AZ-7 score (0-4 normal; 5-9 mild; 10-14 moderate; 15-21 severe): 0 Source: Developed by Drs. Favian Taylor, Quita Faulkner, Barrie Greenberg and colleagues, with an educational ernestine from [employer]. Physical exam (Primary Care) Vital Signs: Last Vital Signs Temp 98.3 F 09/24/24 15:01 Pulse 88 09/24/24 15:01 BP 128/80 09/24/24 15:01 Pulse Ox 98 09/24/24 15:01 Oxygen Delivery Method Room Air 09/24/24 15:01 BMI result Body Mass Index 30.7 Tobacco/Smoking Status: Tobacco use Status Tobacco use date assessed 09/24/24 09/24/24 15:07 Patient Tobacco Use Status Never used Tobacco 09/24/24 15:07 e-Cigarette/Vaping Use Never Used 09/24/24 15:07 PHQ-9: PHQ-9 Score PHQ-9: Total score 0 09/24/24 15:29 Depression Screening Interpretation: Negative Thrive Assessment: Date of Thrive Assessment Date Thrive assessed 09/24/24 09/24/24 15:07 Coding Level of Care Code New Pt Level 4 (68275) Diagnoses Attention deficit R41.840 Arthralgia, unspecified joint M25.50 Joint pain location: unspecified Additional Codes PHQ-9 - 48180 - PHQ-9 Billing: Yes ([id number]) Assessment & Plan Assessment & Plan (1) Attention deficit: Code(s): R41.840 - Attention and concentration deficit Category: Medical (2) Joint pain: Code(s): M25.50 - Pain in unspecified joint Category: Medical Qualifiers: Joint pain location: unspecified Qualified Code(s): M25.50 - Pain in unspecified joint Plan 49 year old female presenting [facility] Past social, family, medical history reviewed Labs ordered Depression/anxiety stable Orders: Orders Complete Blood Count Auto Diff 09/25/24 M25.50 - Pain in unspecified joint, Z13.0 - Encounter for screening for diseases of the blood and blood-forming organs and certain disorders involving the immune mechanism, Z13.220 - Encounter for screening for lipoid disorders, Z13.228 - Encounter for screening for other metabolic disorders Comprehensive Met. Panel 09/25/24 M25.50 - Pain in unspecified joint, Z13.0 - Encounter for screening for diseases of the blood and blood-forming organs and certain disorders involving the immune mechanism, Z13.220 - Encounter for screening for lipoid disorders, Z13.228 - Encounter for screening for other metabolic disorders Lipid Panel 09/25/24 M25.50 - Pain in unspecified joint, Z13.0 - Encounter for screening for diseases of the blood and blood-forming organs and certain disorders involving the immune mechanism, Z13.220 - Encounter for screening for lipoid disorders, Z13.228 - Encounter for screening for other metabolic disorders Erythrocyte Sedimentation Rate 09/25/24 M25.50 - Pain in unspecified joint, Z13.0 - Encounter for screening for diseases of the blood and blood-forming organs and certain disorders involving the immune mechanism, Z13.220 - Encounter for screening for lipoid disorders, Z13.228 - Encounter for screening for other metabolic disorders TSH reflex Free T4 09/25/24 M25.50 - Pain in unspecified joint, Z13.0 - Encounter for screening for diseases of the blood and blood-forming organs and certain disorders involving the immune mechanism, Z13.220 - Encounter for screening for lipoid disorders, Z13.228 - Encounter for screening for other metabolic disorders Vitamin B12 and Folate 09/25/24 M25.50 - Pain in unspecified joint, Z13.0 - Encounter for screening for diseases of the blood and blood-forming organs and certain disorders involving the immune mechanism, Z13.220 - Encounter for screening for lipoid disorders, Z13.228 - Encounter for screening for other metabolic disorders Referrals Psychiatry Referral R41.840 - Attention and concentration deficit Medications: New fluoxetine 40 mg PO DAILY 90 caps 3RF
== END 2024-09-24 15:43 | disposition home or self-care (01) ==
LOC: HO.HMCHD 14:43
PROVIDERS: PCP Internal Medicine; Visit Provider Internal Medicine
DX: R41.840 Attention and concentration deficit (principal); M25.50 Pain in unspecified joint

== ENCOUNTER → 2024-09-24 14:42 | Outpatient (BNVA) | payer BC, SELFPAY | PROVIDERS: PCP Internal Medicine; Visit Provider Internal Medicine | DX: K21.9 Gastro-esophageal reflux disease without esophagitis (principal); M25.50 Pain in unspecified joint; R41.840 Attention and concentration deficit; F32.A Depression, unspecified; F41.9 Anxiety disorder, unspecified | CPT/HCPCS: 96127 ==

== ENCOUNTER 2024-09-25 08:42 | Outpatient (REF) | payer BC, SELFPAY ==
[2024-09-25 11:05] LABS: MANUAL DIFF FLAG NO
[2024-09-25 11:11] LABS: Basophils Percent Auto 0.7 % (0-2); Eosinophils Absolute Auto 0.2 X10*3/uL (0.0-0.4); Eosinophils Percent Auto 3.7 % (0-4); Hematocrit 37.8 % (37.0-47.0); Hemoglobin 12.5 g/dl (12.0-16.0); Imm Gran Abs Auto 0.02 X10*3/uL (0.00-0.03); Imm Gran Pct Auto 0.4 % (0.0-0.4); Lymphocytes Absolute Auto 1.3 X10*3/uL (1.2-4.9); Lymphocytes Percent Auto 27.4 % (20-40); Mean Corpuscular HGB Conc 33.1 g/dl (31.0-35.0); Mean Corpuscular Hemoglobin 30.3 pg (27.0-33.0); Mean Corpuscular Volume 91.7 fL (80.0-98.0); Mean Platelet Volume 9.9 fL (9.4-12.3); Monocytes Absolute Auto 0.3 X10*3/uL (0.1-1.2); Monocytes Percent Auto 6.1 % (2-11); Neutrophils Absolute Auto 2.8 x10*3/uL (2.0-8.3); Neutrophils Percent Auto 61.7 % (45-73); Platelet Count 221 X10*3/uL (160-400); Red Blood Count 4.12 X10*6/uL (4.20-5.50); Red Cell Distribution Width 14.7 % (11.0-16.0); White Blood Count 4.6 X10*3/uL (4.8-10.8)
[2024-09-25 11:43] LABS: Alanine Aminotransferase 23 U/L (0-31); Albumin Level 4.5 g/dL (3.5-5.0); Alkaline Phosphatase 67 U/L (39-117); Anion Gap 11 (12-20); Aspartate Amino Transferase 24 U/L (5-31); Bilirubin Total 0.5 mg/dL (0.0-1.0); Blood Urea Nitrogen 15 mg/dL (9-16); Calcium 9.1 mg/dL (8.4-10.2); Carbon Dioxide 25 mmol/L (22-29); Chloride 108 mmol/L (96-108); Cholesterol 228 mg/dL (<200); Estimated Glomerular Filt Rate > 60; Glucose Random 85 mg/dL (60-115); HDL Cholesterol 43 mg/dL (>40); LDL Cholesterol Calculated 162 mg/dL (<100); Potassium 4.3 mmol/L (3.3-5.1); Sodium 140 mmol/L (135-145); Total Protein 7.3 g/dL (6.5-8.0); Triglycerides 116 mg/dL (<150)
[2024-09-25 11:53] LABS: Folate 16.9 ng/mL (> or = 4.0); Vitamin B12 665 pg/mL (200-900)
[2024-09-25 11:54] LABS: Erythrocyte Sedimentation Rate 8 MM/HR (0-20)
== END 2024-09-25 08:43 | disposition home or self-care (01) ==
LOC: HO.HMGCLDS 08:42
PROVIDERS: PCP Internal Medicine; Visit Provider Internal Medicine
DX: M25.50 Pain in unspecified joint (principal); Z13.0 Encounter for screening for diseases of the blood and blood-forming organs and certain disorders involving the immune mechanism; Z13.220 Encounter for screening for lipoid disorders; Z13.228 Encounter for screening for other metabolic disorders; Z13.6 Encounter for screening for cardiovascular disorders
CPT/HCPCS: 36415; 80053; 80061; 82607; 82746; 84443; 85025; 85652

== ENCOUNTER 2024-11-25 14:49 | Outpatient (AMB) | payer BC, SELFPAY ==
--- NOTE | 2024-11-25 15:04 | MHC.OFFVISPS ---
Intake Intake Visit Reasons: consultation Assessment Analyst Required: No Allergies codeine (CODEINE) Allergy (Unknown, Verified 09/24/24 15:04) VOMIT AND/OR SLEEP Medication List - Last Reconciled 11/25/24 by Faviola Ibrahim APRN fluoxetine 40 mg PO DAILY HPI- Psychiatric Chief Complaint: consultation HPI Narrative: Pt with a hx of depression and anxiety, currently stable on fluoxetine 40mg. Pt noted concerns with attention and focus, difficulties completing tasks. Pt in need of assessment for possible ADHD, and medication recommendations. Mental Status Exam Mental Status Exam Patient Appearance: Appropriate Patient Orientation: Person, Place, Time and Situation Level of Consciousness: Awake, Appropriate and Alert Patient Behavior: Appropriate, Talkative, Restless and Distractible Mood Description: Sad and Expansive Affect Description: Appropriate and Sad Patient Cognition Impaired: No Ability to Follow Directions: Good Speech Pattern: Difficulty Finding Words, Spontaneous Speech and Animated Memory Description: Intact Hallucinations: None Delusions: Not Present Thought Process: Intact and Distracted Thought Content: positive for Intact and positive for Loose Associations Judgement: Fair Assessment and Plan Assessment & Plan (1) ADHD (attention deficit hyperactivity disorder), combined type: Status: Acute Code(s): F90.2 - Attention-deficit hyperactivity disorder, combined type (2) Major depressive disorder, recurrent, moderate: Status: Acute Code(s): F33.1 - Major depressive disorder, recurrent, moderate Plan pt also has features of autism spectrum disorder-high functioning pt to get EKG done first and then if normal will start wellbutrin (family history of cardiac disease on maternal side early in life) Medications: New bupropion HCl XL (Wellbutrin XL) 150 mg PO QAM 30 tabs 2RF Orders: Orders ECG 12 lead EKG Today F90.2 - Attention-deficit hyperactivity disorder, combined type Counseling and coordination of Care Pt. Self Management counseling: Maintenance-social rhythm, Nutrition education and improvement and Sleep hygiene Medication management counseling: Effectiveness, Side effects, Dosing range, Duration, Drug interaction and Adherence Diagnosis and Prognosis Counseling: Accuracy of diagnosis, Prognosis over time, Impact of diagnosis on life functions, Impact of family relationship, Problematic behaviors secondary to diagnosis and Adequacy of current interventions Details: I spent 75 minutes reviewing the record, seeing the patient and documenting in the medical record. Counseling provided to the patient/caregiver as outlined below. Addressed patient/caregiver concerns regarding current medication regime including effective adherence. Addressed patient/caregiver concerns regarding diagnosis and prognosis including accuracy of diagnosis, prognosis over time, impact of diagnosis. Addressed patient/caregiver concerns regarding impact of recent stressors. [facility] Medical History Joint pain Depression Hodgkin lymphoma Hx of migraine headaches Surgical History History of biopsy H/O elbow surgery History of hernia surgery H/O shoulder surgery Family History Family/Other Breast cancer Mother Melanoma Father Lung cancer Paternal Uncle Lung cancer Paternal Aunt Lung cancer Mother No problems noted. Father No problems noted. 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
== END 2024-11-25 16:04 | disposition home or self-care (01) ==
LOC: HO.HOP 14:49
PROVIDERS: PCP Internal Medicine; Visit Provider Clinical Nurse Specialist Psychiatric/Mental Health
DX: F90.2 Attention-deficit hyperactivity disorder, combined type (principal); F33.1 Major depressive disorder, recurrent, moderate
CPT/HCPCS: 90792

== ENCOUNTER → 2024-11-25 14:49 | Outpatient (BNVA) | payer BC, SELFPAY | PROVIDERS: PCP Internal Medicine; Visit Provider Clinical Nurse Specialist Psychiatric/Mental Health | DX: F90.2 Attention-deficit hyperactivity disorder, combined type (principal); F33.1 Major depressive disorder, recurrent, moderate | CPT/HCPCS: 90792 ==

== ENCOUNTER → 2024-11-26 07:03 | Outpatient (REF) | payer BC, SELFPAY ==
--- NOTE | 2024-11-26 07:38 | ECG_ITS ---
Test Reason : ADHD ? ?QTC Blood Pressure : */* mmHG Vent. Rate : 67 BPM Atrial Rate : 67 BPM P-R Int : 144 ms QRS Dur : 78 ms QT Int : 406 ms P-R-T Axes : 49 56 40 degrees QTcB Int : 429 ms Normal sinus rhythm Normal ECG When compared with ECG of 16-May-2020 13:53, T wave inversion no longer evident in Inferior leads Referred By: Faviola Ibrahim Electronically Signed By: Romulo Malloy
== END ==
LOC: HO.CARD 07:03
PROVIDERS: PCP Internal Medicine; Visit Provider Clinical Nurse Specialist Psychiatric/Mental Health
DX: F90.2 Attention-deficit hyperactivity disorder, combined type (principal)
CPT/HCPCS: 93005

== ENCOUNTER → 2024-11-26 07:38 | Outpatient (BNV) | payer BC, SELFPAY | PROVIDERS: PCP Internal Medicine; Visit Provider Internal Medicine Cardiovascular Disease | DX: Z13.6 Encounter for screening for cardiovascular disorders (principal) | CPT/HCPCS: 93010 ==

== ENCOUNTER 2025-01-06 16:16 | Outpatient (AMB) | payer BC, SELFPAY ==
--- NOTE | 2025-01-06 16:16 | MHC.OFFVISPS ---
Intake Intake Visit Reasons: f/u consultation Enlisted Aircrew/Aerial Observer/Gunner Required: No Allergies codeine (CODEINE) Allergy (Unknown, Verified 09/24/24 15:04) VOMIT AND/OR SLEEP Medication List - Last Reconciled 01/06/25 by Faviola Ibrahim APRN bupropion HCl XL (Wellbutrin XL) 150 mg PO QAM fluoxetine 40 mg PO DAILY HPI- Psychiatric Chief Complaint: f/u consultation HPI Narrative: Pt with a hx of depression and anxiety, currently stable on fluoxetine 40mg. Pt started wellbutrin XL 150mg and tolerating well but no improvement in focus and concentration that she can observe. Pt noted concerns with attention and focus, difficulties completing tasks. PHQ9= 11 down from 18 at first visit; GAD7= 7 down from 11 at first visit. Subjective Subjective Subjective Medication Compliance: Yes Side effects from medications: No Review of Systems Medical Review of Systems: unchanged Mental Status Exam Mental Status Exam Patient Appearance: Appropriate Patient Orientation: Person, Place, Time and Situation Level of Consciousness: Awake, Appropriate and Alert Patient Behavior: Appropriate, Talkative, Restless and Distractible Mood Description: Sad and Expansive Affect Description: Appropriate and Sad Patient Cognition Impaired: No Ability to Follow Directions: Good Speech Pattern: Difficulty Finding Words, Spontaneous Speech and Animated Memory Description: Intact Hallucinations: None Delusions: Not Present Thought Process: Intact and Distracted Thought Content: positive for Intact and positive for Loose Associations Judgement: Fair Assessment and Plan Assessment & Plan (1) ADHD (attention deficit hyperactivity disorder), combined type: Status: Acute Code(s): F90.2 - Attention-deficit hyperactivity disorder, combined type (2) Major depressive disorder, recurrent, moderate: Status: Acute Code(s): F33.1 - Major depressive disorder, recurrent, moderate Plan pt is also likely on the autism spectrum which she agrees with and is fmiliar with the traits. plan to increase wellbutrin xl to 300mg daily Medications: New bupropion HCl XL (Wellbutrin XL) 300 mg PO QAM 30 tabs 2RF Refilled fluoxetine 40 mg PO DAILY 90 caps 3RF Discontinued bupropion HCl XL (Wellbutrin XL) Discontinued Reason: Doctor's Order 150 mg PO QAM 30 tabs 2RF Counseling and coordination of Care Pt. Self Management counseling: Maintenance-social rhythm, Nutrition education and improvement and Sleep hygiene Medication management counseling: Effectiveness, Side effects, Dosing range, Duration, Drug interaction and Adherence Diagnosis and Prognosis Counseling: Accuracy of diagnosis, Prognosis over time, Impact of diagnosis on life functions, Impact of family relationship, Problematic behaviors secondary to diagnosis and Adequacy of current interventions Details: I spent 30 minutes reviewing the record, seeing the patient and documenting in the medical record. Counseling provided to the patient/caregiver as outlined below. Addressed patient/caregiver concerns regarding current medication regime including effective adherence. Addressed patient/caregiver concerns regarding diagnosis and prognosis including accuracy of diagnosis, prognosis over time, impact of diagnosis. Addressed patient/caregiver concerns regarding impact of recent stressors. [facility] Medical History Joint pain Depression Hodgkin lymphoma Hx of migraine headaches Surgical History History of biopsy H/O elbow surgery History of hernia surgery H/O shoulder surgery Family History Family/Other Breast cancer Mother Melanoma Father Lung cancer Paternal Uncle Lung cancer Paternal Aunt Lung cancer Mother No problems noted. Father No problems noted. 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
== END 2025-01-06 16:34 | disposition home or self-care (01) ==
LOC: HO.HOP 16:16
PROVIDERS: PCP Internal Medicine; Visit Provider Clinical Nurse Specialist Psychiatric/Mental Health
DX: F90.2 Attention-deficit hyperactivity disorder, combined type (principal); F33.1 Major depressive disorder, recurrent, moderate
CPT/HCPCS: 99214

== ENCOUNTER 2025-02-22 15:41 | Outpatient (AMB) | payer BC, SELFPAY ==
--- NOTE | 2025-02-22 16:40 | A.OFFPSYCH_ITS ---
Intake Intake Visit Reasons: f/u consultation Nickel Plater Required: No Allergies codeine (CODEINE) Allergy (Unknown, Verified 09/24/24 15:04) VOMIT AND/OR SLEEP Medication List - Last Reconciled 02/22/25 by Faviola Ibrahim APRN bupropion HCl XL (Wellbutrin XL) 300 mg PO QAM fluoxetine 40 mg PO DAILY HPI- Psychiatric Chief Complaint: f/u consultation HPI Narrative: Pt here for follow up re: depression and anxiety. Pt symptoms worsened after recent loss of mother with whom she was very close; she lived with her mother and is feeling the los very acutely. Her mother became ill and quite suddenly. Pt is taking meds consistently: fluoxetine 40mg and wellbutrin XL 150mg and tolerating well but no improvement in focus and concentration that she can observe. Pt noted concerns with attention and focus, difficulties completing tasks. PHQ9= 17 and GAD7= 17 . Pt denies SI or HI. 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 [employer] Past Psychiatric History: none Subjective Subjective Subjective Medication Compliance: Yes Side effects from medications: No Review of Systems Medical Review of Systems: unchanged Mental Status Exam Mental Status Exam Patient Appearance: Appropriate Patient Orientation: Person, Place, Time and Situation Level of Consciousness: Awake, Appropriate and Alert Patient Behavior: Appropriate, Cooperative, Anxious and Crying Mood Description: Depressed, Anxious and Sad Affect Description: Appropriate, Depressed and Sad Patient Cognition Impaired: No Ability to Follow Directions: Good Speech Pattern: Difficulty Finding Words and Spontaneous Speech Memory Description: Intact Hallucinations: None Delusions: Not Present Thought Process: Intact and Distracted Thought Content: positive for Intact and positive for Loose Associations Judgement: Fair Assessment and Plan Assessment & Plan (1) ADHD (attention deficit hyperactivity disorder), combined type: Status: Acute Code(s): F90.2 - Attention-deficit hyperactivity disorder, combined type (2) Major depressive disorder, recurrent, moderate: Status: Acute Code(s): F33.1 - Major depressive disorder, recurrent, moderate (3) Bereavement reaction: Status: Acute Code(s): F43.20 - Adjustment disorder, unspecified; Z63.4 - Disappearance and of family member Plan pt is also likely on the autism spectrum which she agrees with and is fmiliar with the traits. plan to increase wellbutrin xl to 300mg daily Medications: New fluoxetine 60 mg (3 x 20 mg) PO DAILY 90 caps 1RF bupropion HCl XL (Wellbutrin XL) 150 mg PO QAM 30 tabs 1RF Discontinued bupropion HCl XL Discontinued Reason: Doctor's Order 300 mg PO QAM 30 tabs 2RF Counseling and coordination of Care Pt. Self Management counseling: Maintenance-social rhythm, Nutrition education and improvement and Sleep hygiene Medication management counseling: Effectiveness, Side effects, Dosing range, Duration, Drug interaction and Adherence Diagnosis and Prognosis Counseling: Accuracy of diagnosis, Prognosis over time, Impact of diagnosis on life functions, Impact of family relationship, Problematic behaviors secondary to diagnosis and Adequacy of current interventions Details: I spent 40 minutes reviewing the record, seeing the patient and documenting in the medical record. Counseling provided to the patient/caregiver as outlined below. Addressed patient/caregiver concerns regarding current medication regime including effective adherence. Addressed patient/caregiver concerns regarding diagnosis and prognosis including accuracy of diagnosis, prognosis over time, impact of diagnosis. Addressed patient/caregiver concerns regarding impact of recent stressors. [facility] Medical History Joint pain Depression Hodgkin lymphoma Hx of migraine headaches Surgical History History of biopsy H/O elbow surgery History of hernia surgery H/O shoulder surgery Family History Family/Other Breast cancer Mother Melanoma Father Lung cancer Paternal Uncle Lung cancer Paternal Aunt Lung cancer Mother No problems noted. Father No problems noted. Social History Housing: House Alcohol intake: former Patient Tobacco Use Status: Never used Tobacco e-Cigarette/Vaping Use: Never Used service: No Current occupational status: employed Current occupation: [employer]/ left hand dominant Cognitive needs: No Hearing needs: No Vision needs: Yes (rx glasses) Coding Level of Care Code Est Pt Level 4 (83106) Diagnoses ADHD (attention deficit hyperactivity disorder), combined type F90.2 Major depressive disorder, recurrent, moderate F33.1 Bereavement reaction F43.20; Z63.4
== END 2025-02-22 16:50 | disposition home or self-care (01) ==
LOC: HO.HOP 15:41
PROVIDERS: PCP Internal Medicine; Visit Provider Clinical Nurse Specialist Psychiatric/Mental Health
DX: F90.2 Attention-deficit hyperactivity disorder, combined type (principal); F33.1 Major depressive disorder, recurrent, moderate; F43.20 Adjustment disorder, unspecified; Z63.4 Disappearance and death of family member
CPT/HCPCS: 99214

== ENCOUNTER 2025-03-22 15:48 | Outpatient (AMB) | payer BC, SELFPAY ==
--- NOTE | 2025-03-22 16:13 | MHC.OFFVISPS ---
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 Pt is taking meds consistently: fluoxetine 40mg and wellbutrin XL 300mg and tolerating well but no improvement in focus and concentration that she can observe. Pt noted concerns with attention and focus, difficulties completing tasks. PHQ9= 11 and GAD7=4 . Pt denies SI or HI. Pt in contact with siblings and they support each other. Past Psychiatric History: none Subjective Subjective Medication Compliance: Yes Side effects from medications: No Review of Systems Medical Review of Systems: unchanged Mental Status Exam Mental Status Exam Patient Appearance: Appropriate Patient Orientation: Person, Place, Time and Situation Level of Consciousness: Awake, Appropriate and Alert Patient Behavior: Appropriate, Cooperative, Anxious and Crying Mood Description: Depressed, Anxious and Sad Affect Description: Appropriate, Depressed and Sad Patient Cognition Impaired: No Ability to Follow Directions: Good Speech Pattern: Difficulty Finding Words and Spontaneous Speech Memory Description: Intact Hallucinations: None Delusions: Not Present Thought Process: Intact and Distracted Thought Content: positive for Intact and positive for Loose Associations Judgement: Fair Assessment and Plan Assessment & Plan (1) ADHD (attention deficit hyperactivity disorder), combined type: Status: Acute Code(s): F90.2 - Attention-deficit hyperactivity disorder, combined type (2) Major depressive disorder, recurrent, moderate: Status: Acute Code(s): F33.1 - Major depressive disorder, recurrent, moderate (3) Bereavement reaction: Status: Acute Code(s): F43.20 - Adjustment disorder, unspecified; Z63.4 - Disappearance and of family member Plan taper off wellbutrin and discontinue trial of adderall 10mg bid if tolerated will switch to long acting Medications: New dextroamphetamine-amphetamine 10 mg (Adderall) administer doses at least 4-6 hours apart; Partial Fill upon patient request. 10 mg PO BID 60 tabs 0RF F90.2 - Attention-deficit hyperactivity disorder, combined type Discontinued bupropion HCl XL Discontinued Reason: Doctor's Order 150 mg PO QAM 90 tabs 1RF Counseling and coordination of Care Pt. Self Management counseling: Maintenance-social rhythm, Nutrition education and improvement and Sleep hygiene Medication management counseling: Effectiveness, Side effects, Dosing range, Duration, Drug interaction and Adherence Diagnosis and Prognosis Counseling: Accuracy of diagnosis, Prognosis over time, Impact of diagnosis on life functions, Impact of family relationship, Problematic behaviors secondary to diagnosis and Adequacy of current interventions Details: I spent 30 minutes reviewing the record, seeing the patient and documenting in the medical record. Counseling provided to the patient/caregiver as outlined below. Addressed patient/caregiver concerns regarding current medication regime including effective adherence. Addressed patient/caregiver concerns regarding diagnosis and prognosis including accuracy of diagnosis, prognosis over time, impact of diagnosis. Addressed patient/caregiver concerns regarding impact of recent stressors. [facility] Medical History Joint pain Depression Hodgkin lymphoma Hx of migraine headaches Surgical History History of biopsy H/O elbow surgery History of hernia surgery H/O shoulder surgery Family History Family/Other Breast cancer Mother Melanoma Father Lung cancer Paternal Uncle Lung cancer Paternal Aunt Lung cancer Mother No problems noted. Father No problems noted. 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
== END 2025-03-22 16:53 | disposition home or self-care (01) ==
LOC: HO.HOP 15:48
PROVIDERS: PCP Internal Medicine; Visit Provider Clinical Nurse Specialist Psychiatric/Mental Health
DX: F90.2 Attention-deficit hyperactivity disorder, combined type (principal); F33.1 Major depressive disorder, recurrent, moderate; F43.20 Adjustment disorder, unspecified; Z63.4 Disappearance and death of family member
CPT/HCPCS: 99214